=== PATIENT | male | born 2000 | race Caucasian/White ===

== ENCOUNTER 2022-12-18 14:05 | Outpatient (CLI) | payer OTHER ==
--- NOTE | 2022-12-18 16:27 | MRI Report ---
PROCEDURE: KNEE WO - RT INDICATIONS: RIGHT KNEE PAIN TECHNIQUE: Noncontrast sagittal PD fast spin echo and T2 fast spin echo with fat saturation, sagittal 3-D gradie nt sequence with fat saturation; coronal T1 spin echo and PD fast spin echo with fat saturation, and axial PD fast spin echo with fat saturation through the knee. COMPARISON: None. FINDINGS: Image quality: Excellent. Menisci: The medial meniscus is intact. Complex tear involving anterior horn of lateral meniscus is s een extending to both superior and inferior articulating surfaces. The meniscal root ligaments appear intact. Cruciate ligaments: Patient is status post ACL reconstruction. ACL graft is thickened. No ACL graft r upture. PCL is intact. Medial structures: The medial collateral ligament appears intact. The posterior oblique ligament, s emimembranosus tendon insertions, and oblique popliteal ligament, and meniscocapsular junction appear intact. Visualized portions of the pes anserinus tendons appear normal. No abnormal bursal fluid. Lateral structures: The lateral collateral ligament, long and short heads of the biceps femoris tend on appear intact. The popliteus tendon appears normal; the popliteofibular ligament appears intact. Iliotibial band appears normal. Anterior structures: The quadriceps and patellar tendons appear intact. Patellar alignment is winnie l. No femoral trochlear dysplasia or ventral trochlear prominence. No edema in the infrapatellar fa t pad. Bones and cartilage: There is no marrow edema. No fracture or dislocation. Postsurgical changes are s een in lateral aspect of distal femur and medial aspect of proximal tibia. No gross signal abnormalit y is seen in tibial condyle or femoral condyle. The cartilage of the medial and lateral femorotibial compartments, as well as the patellofemoral compartment, appears normal in thickness. Joint space: There is physiologic knee joint fluid. No Alegre's cyst. Normal appearing synovial pli are incidentally noted. IMPRESSION: 1. Prior ACL repair with postsurgical changes. Thickened ACL graft which may indicate postsurgical ch anges. Low-grade ACL graft sprain/partial thickness tear cannot be excluded. No rupture of the graft. PCL is intact. 2. Suggestion of complex oblique tear involving anterior horn of lateral meniscus extending to both s uperior and inferior articulating surfaces. Medial meniscus is intact. 3. Postsurgical changes in distal femur and proximal tibia. No marrow edema. No fracture or dislocati on. Articulating cartilages are intact. Reviewed by: Pete Quiroga MD on 12/18/2022 4:26 PM PST Approved by: Pete Quiroga MD on 12/18/2022 4:26 PM PST Station ID: [id number]
== END 2022-12-18 14:06 | disposition home or self-care (01) ==
LOC: DI 14:05
DX: M25.561 Pain in right knee (principal)